=== PATIENT | female | born 1995 | race Caucasian/White ===

== ENCOUNTER → 2025-03-29 11:38 | Outpatient (CLI) | payer OTHER, SELFPAY ==
--- NOTE | 2025-03-29 11:40 | DI.MRI.S_ITS ---
PROCEDURE: MR LUMBAR SPINE WO CON INDICATIONS: low back pain TECHNIQUE: Noncontrast sagittal T1 spin echo and T2 fast echo, sagittal STIR, and T2 fast spin echo through the lumbar spine. In cases with scoliosis, additional coronal T2 fast spin echo may be performed. COMPARISON: None. FINDINGS: Image quality: Excellent. Alignment and Curvature: There is trace retrolisthesis L5-S1. Bone Marrow: Marrow is of normal overall signal. Minimal reactive endplate changes at L5-S1. No acute vertebral body compression fractures. Spinal Cord: Conus medullaris terminates at the L2 level. Visualized cord demonstrates normal signal and size. Paraspinous Soft Tissues: No paravertebral masses. Discs: Moderate to severe disc desiccation L5-S1. T12-L1: No disc bulge, spinal stenosis or foraminal narrowing. L1-L2: No disc bulge, spinal stenosis or foraminal narrowing. L2-L3: No disc bulge, spinal stenosis or foraminal narrowing. L3-L4: No disc bulge, spinal stenosis or foraminal narrowing. L4-L5: No disc bulge, spinal stenosis or foraminal narrowing. L5-S1: Mild disc bulge with small posterior central protrusion. No spinal stenosis no foraminal narrowing. IMPRESSION: Early degenerative changes most prominent L5-S1 as above. Dictated by: Callie Treadwell M.D. on 03/29/2025 at 13:39 Approved by: Callie Treadwell M.D. on 03/29/2025 at 13:41
== END ==
PROVIDERS: PCP Family Medicine; Referring Provider Family Medicine; Visit Provider Family Medicine
DX: M51.27 Other intervertebral disc displacement, lumbosacral region (principal)
CPT/HCPCS: 72148

== ENCOUNTER → 2025-05-09 08:19 | Outpatient (CLI) | payer OTHER, SELFPAY | PROVIDERS: PCP Family Medicine; Referring Provider Family Medicine; Visit Provider Family Medicine | DX: R06.00 Dyspnea, unspecified (principal); F17.290 Nicotine dependence, other tobacco product, uncomplicated; R94.2 Abnormal results of pulmonary function studies | CPT/HCPCS: 94060; 94726; 94729 ==